=== PATIENT | male | born 1990 | race Caucasian/White ===

== ENCOUNTER 2023-10-18 10:52 | Emergency (ER) | payer SELFPAY ==
[~2023-10-18] VITALS: Ht 170.2 cm; Wt 73.0 kg
[2023-10-18 10:56] VITALS: O2SAT 98
[2023-10-18] MEDS: OXYCODONE HCL/ACETAMINOPHEN 5/325MG TABLET PO ONE (11:22)
[2023-10-18] MEDS ORDERED: OXYC-100 MT (11:48)
[2023-10-18 11:56] VITALS: BP 134/72; PULSE 74; RESP 16; TEMP 98.6
== END 2023-10-18 12:07 | disposition home or self-care (01) ==
LOC: ER 10:52
DX: T21.01XA Burn of unspecified degree of chest wall, initial encounter (principal); X08.8XXA Exposure to other specified smoke, fire and flames, initial encounter; Y93.89 Activity, other specified; Y92.89 Other specified places as the place of occurrence of the external cause; Y99.8 Other external cause status
CPT/HCPCS: 99283